=== PATIENT | male | born 1970 | race Caucasian/White ===

== ENCOUNTER 2018-08-22 20:54 | Emergency (ER) | payer MEDICARE, MEDICAID ==
[~2018-08-22] VITALS: Ht 157.5 cm; Wt 55.0 kg
[~2018-08-22 20:54] MED LIST: [UNRECOGNIZED DRUG - CODE] NEB
[2018-08-22] MEDS ORDERED: LORazepam 2 mg/ml vial IM ONE (22:10)
[2018-08-22 22:24] LABS: INR 1.2 INR
[2018-08-22 22:26] LABS: BASOPHILS % (AUTO) 0.6 % (0-1); EOSINOPHILS # (AUTO) 0.2 X10'3 (0-0.9); EOSINOPHILS % (AUTO) 2.2 % (0-6); HEMATOCRIT 43.2 % (42.0-52.0); HEMOGLOBIN 14.1 g/dl (14.0-17.9); LYMPHOCYTES # (AUTO) 3.5 X10'3 (1.1-4.8); LYMPHOCYTES % (AUTO) 42.7 % (21-51); MEAN CORPUSCULAR HEMOGLOBIN 29.8 PG (27.0-31.0); MEAN CORPUSCULAR HGB CONC 32.5 % (33.0-36.5); MEAN CORPUSCULAR VOLUME 91.7 FL (78-98); MEAN PLATELET VOLUME 9.2 FL (7.4-10.4); MONOCYTES # (AUTO) 0.8 X10'3 (0-0.9); MONOCYTES % (AUTO) 10.4 % (2-12); NEUTROPHILS # (AUTO) 3.6 X10'3 (1.8-7.7); NEUTROPHILS % (AUTO) 44.1 % (42-75); PLATELET COUNT 256 X10'3 (140-440); RED BLOOD COUNT 4.71 X10'6 (4.70-6.10); RED CELL DISTRIBUTION WIDTH 13.2 % (11.5-14.5); WHITE BLOOD COUNT 8.1 X10'3 (4.5-11.0)
[2018-08-22 22:31] LABS: ALANINE AMINOTRANSFERASE 36 U/L (12-78); ALBUMIN 4.2 G/DL (3.4-5.0); ALBUMIN/GLOBULIN RATIO 1.2 (1.1-1.5); ALKALINE PHOSPHATASE 60 IU/L (46-116); ANION GAP 8 (8-16); ASPARTATE AMINO TRANSFERASE 52 U/L (10-37); BILIRUBIN,TOTAL 0.3 MG/DL (0.1-1.0); BLOOD UREA NITROGEN 30 MG/DL (7-18); BUN/CREATININE RATIO 26.3 (5.4-32.0); CALCIUM 9.1 MG/DL (8.5-10.1); CHLORIDE 107 MMOL/L (99-107); CREATININE 1.14 MG/DL (0.60-1.10); LIPASE 103 U/L (73-393); POTASSIUM 4.2 MMOL/L (3.5-5.1); SODIUM 146 MMOL/L (135-145); TOTAL CARBON DIOXIDE 31.1 MMOL/L (24-32); TOTAL PROTEIN 7.6 G/DL (6.4-8.2); eGFR 68 ML/MIN
[2018-08-22 22:32] LABS: GLUCOSE 117 MG/DL (70-104)
--- NOTE | 2018-08-22 22:32 | NUR ---
ATIVAN ADM THE PATIENT IS VERY ANXIOUS, EXCITED AND GETTING OUT OF BED, SITTING ON FLOOR, STANDING ON HIS BED AND CAREGIVER REQUESTED MEDICAITON, AND IT IS APPROPRIATE.
--- NOTE | 2018-08-22 22:33 | NUR ---
pt given ativan im 2 mg to right thigh. required caregive to hold him down . pt is very estless and will be difficult to straight cath at this time. Md updated.
--- NOTE | 2018-08-22 23:48 | NUR ---
HE DID FAIRLY WELL WITH A CATHETER FOR UA. THEN CAME INTO ROOM AND THE CAREGIVER AND I WERE ABLE TO STAND THE PATIENT, THE SMALL HERNIA IS SOFT, WHEN HE LAYS DOWN IT GOES AWAY. FRESH ATTENDS PLACED ON PATIENT.
[2018-08-22 23:57] LABS: CLARITY,URINE CLEAR (Clear); COLOR,URINE YELLOW (Yellow); GLUCOSE, URINE NEGATIVE (Neg); KETONES,URINE TRACE mg/dl (Neg); LEUKOCYTE ESTERASE ,URINE NEGATIVE (Neg); NITRITES, URINE NEGATIVE (Neg); OCCULT BLOOD,URINE NEGATIVE (Neg); PH,URINE 8.5 (4.8-8.0); PROTEIN,URINE NEGATIVE (Neg); UROBILINOGEN,URINE 0.2 E.U/dL (0.2-1.0)
[2018-08-23 00:06] LABS: UA COLLECTION TYPE OTHER
== END 2018-08-23 00:08 | disposition home or self-care (01) ==
LOC: ER 20:55
DX: K40.90 Unilateral inguinal hernia, without obstruction or gangrene, not specified as recurrent (principal); Z79.899 Other long term (current) drug therapy
CPT/HCPCS: 36415; 80053; 81003; 83690; 85025; 85610; 96372; 99283; J2060; P9612; 83605

== ENCOUNTER 2019-05-12 09:46 | Day surgery (SDC) | payer MEDICARE, MEDICAID ==
[2019-05-12 09:53] VITALS: BP 83/44
[2019-05-12] MEDS ORDERED: Nebulizer INH (10:42)
[2019-05-12] MEDS ORDERED: DOCU100C41 PO (10:43)
[2019-05-12] MEDS ORDERED: CHOL100046 PO (10:43)
== END 2019-05-12 10:50 | disposition home or self-care (01) ==
LOC: GI LAB 09:46
PROVIDERS: ATTEND Internal Medicine Gastroenterology
DX: K59.00 Constipation, unspecified (principal); Z53.9 Procedure and treatment not carried out, unspecified reason
CPT/HCPCS: J7040

== ENCOUNTER 2019-05-19 20:35 | Emergency (ER) | payer MEDICARE, MEDICAID ==
[~2019-05-19] VITALS: Ht 152.4 cm; Wt 45.5 kg
[~2019-05-19 20:35] MED LIST changes: +CHOL100046 PO; +DOCU100C41 PO; +Nebulizer INH; -[UNRECOGNIZED DRUG - CODE] NEB
[2019-05-19 20:51] VITALS: BP 115/85
== END 2019-05-19 21:47 | disposition home or self-care (01) ==
LOC: ER 20:36
DX: S60.811A Abrasion of right wrist, initial encounter (principal); S50.312A Abrasion of left elbow, initial encounter; J45.909 Unspecified asthma, uncomplicated; R62.50 Unspecified lack of expected normal physiological development in childhood; Z79.899 Other long term (current) drug therapy; W01.0XXA Fall on same level from slipping, tripping and stumbling without subsequent striking against object, initial encounter; Y93.89 Activity, other specified; Y92.89 Other specified places as the place of occurrence of the external cause; Y99.8 Other external cause status
CPT/HCPCS: 99284

== ENCOUNTER 2022-12-24 17:51 | Emergency (ER) | payer MEDICARE, MEDICAID ==
[~2022-12-24] VITALS: Ht 147.3 cm; Wt 41.8 kg
[2022-12-24 18:41] LABS: BASOPHILS # (AUTO) 0.1 X10'3 (0-0.2); BASOPHILS % (AUTO) 0.7 % (0-1); EOSINOPHILS # (AUTO) 0.3 X10'3 (0-0.9); EOSINOPHILS % (AUTO) 3.5 % (0-6); HEMATOCRIT 48.2 % (42.0-52.0); HEMOGLOBIN 15.9 g/dl (14.0-17.9); LYMPHOCYTES # (AUTO) 2.7 X10'3 (1.1-4.8); LYMPHOCYTES % (AUTO) 35.5 % (21-51); MEAN CORPUSCULAR HEMOGLOBIN 30.1 PG (27.0-31.0); MEAN CORPUSCULAR HGB CONC 32.9 g/dL (33.0-36.5); MEAN CORPUSCULAR VOLUME 91.6 FL (78-98); MEAN PLATELET VOLUME 8.1 FL (7.4-10.4); MONOCYTES # (AUTO) 0.5 X10'3 (0-0.9); MONOCYTES % (AUTO) 6.1 % (2-12); NEUTROPHILS # (AUTO) 4.2 X10'3 (1.8-7.7); NEUTROPHILS % (AUTO) 54.2 % (42-75); PLATELET COUNT 214 X10'3 (140-440); RED BLOOD COUNT 5.27 X10'6 (4.70-6.10); RED CELL DISTRIBUTION WIDTH 13.9 % (11.5-14.5); WHITE BLOOD COUNT 7.7 X10'3 (4.5-11.0)
[2022-12-24 18:52] LABS: ALANINE AMINOTRANSFERASE 34 U/L (12-78); ALBUMIN 4.5 G/DL (3.4-5.0); ALBUMIN/GLOBULIN RATIO 1.2 (1.1-1.5); ALKALINE PHOSPHATASE 45 IU/L (46-116); ANION GAP 7 (8-16); ASPARTATE AMINO TRANSFERASE 27 U/L (10-37); BILIRUBIN,TOTAL 0.3 MG/DL (0.1-1.0); BLOOD UREA NITROGEN 18 MG/DL (7-18); BUN/CREATININE RATIO 22.5 (10.0-20.0); CALCIUM 9.7 MG/DL (8.5-10.1); CHLORIDE 99 MMOL/L (99-107); GLUCOSE 110 MG/DL (70-104); POTASSIUM 4.2 MMOL/L (3.5-5.1); SODIUM 139 MMOL/L (135-145); TOTAL CARBON DIOXIDE 32.8 MMOL/L (24-32); TOTAL PROTEIN 8.4 G/DL (6.4-8.2); eGFR > 90 ML/MIN
[2022-12-24 20:14] LABS: CARBAMAZEPINE (TEGRETOL) 9.1 UG/ML (4.0-12.0)
[2022-12-24] MEDS ORDERED: normal saline 1000ML IV soln IVB ONE (22:35)
--- NOTE | 2022-12-24 23:41 | NUR ---
PT PO INTAKE 500CC WATER AND 100ML JUICE
[2022-12-24 23:42] VITALS: BP 110/78
== END 2022-12-24 23:51 | disposition home or self-care (01) ==
LOC: ER 17:51
DX: E03.9 Hypothyroidism, unspecified (principal); J45.909 Unspecified asthma, uncomplicated; Z79.899 Other long term (current) drug therapy; Z79.1 Long term (current) use of non-steroidal anti-inflammatories (NSAID)
CPT/HCPCS: 36415; 70450; 71045; 80053; 80156; 82140; 83605; 84145; 84439; 84443; 84484; 85025; 99284; J7030; A4615

== ENCOUNTER 2024-06-25 13:22 | Emergency (ER) | payer MEDICARE, MEDICAID ==
[~2024-06-25] VITALS: Ht 157.5 cm; Wt 50.0 kg
[2024-06-25 15:54] LABS: BASOPHILS % (AUTO) 0.3 % (0-1); EOSINOPHILS # (AUTO) 0.1 X10'3 (0-0.9); EOSINOPHILS % (AUTO) 1.5 % (0-6); HEMOGLOBIN 13.4 g/dl (14.0-17.9); LYMPHOCYTES % (AUTO) 20.8 % (21-51); MEAN CORPUSCULAR HEMOGLOBIN 30.4 PG (27.0-31.0); MEAN CORPUSCULAR HGB CONC 32.6 g/dL (33.0-36.5); MEAN CORPUSCULAR VOLUME 93.4 FL (78-98); MEAN PLATELET VOLUME 8.1 FL (7.4-10.4); MONOCYTES # (AUTO) 0.9 X10'3 (0-0.9); MONOCYTES % (AUTO) 8.8 % (2-12); NEUTROPHILS # (AUTO) 6.8 X10'3 (1.8-7.7); NEUTROPHILS % (AUTO) 68.6 % (42-75); PLATELET COUNT 240 X10'3 (140-440); RED BLOOD COUNT 4.39 X10'6 (4.70-6.10); RED CELL DISTRIBUTION WIDTH 14.4 % (11.5-14.5); WHITE BLOOD COUNT 9.8 X10'3 (4.5-11.0)
[2024-06-25 16:05] LABS: ALBUMIN 3.7 G/DL (3.4-5.0); ANION GAP 6 (8-16); BLOOD UREA NITROGEN 16 MG/DL (7-18); CALCIUM 8.8 MG/DL (8.5-10.1); CHLORIDE 102 MMOL/L (99-107); GLUCOSE 91 MG/DL (70-104); MAGNESIUM 2.5 MG/DL (1.5-2.4); POTASSIUM 4.7 MMOL/L (3.5-5.1); SODIUM 141 MMOL/L (135-145); eCRCL 73 ML/MIN; eGFR > 90 ML/MIN
[2024-06-25] MEDS ORDERED: DOXY-460 PO (17:30)
[2024-06-25] MEDS: dexamethasone sod phosphate 10mg/ml inj PO STA (17:40)
[2024-06-25 17:43] VITALS: BP 118/75; PULSE 74; RESP 16; TEMP 97.6; O2SAT 98
== END 2024-06-25 17:45 | disposition home or self-care (01) ==
LOC: ER 13:23
DX: J40 Bronchitis, not specified as acute or chronic (principal); Z20.822 Contact with and (suspected) exposure to COVID-19; F88 Other disorders of psychological development; Z88.8 Allergy status to other drugs, medicaments and biological substances; Z79.899 Other long term (current) drug therapy
CPT/HCPCS: 36415; 71045; 80048; 83735; 84145; 85025; 87811; 99284; A6590; J1100

== ENCOUNTER 2024-11-09 14:34 | Emergency (ER) | payer MEDICARE, MEDICAID ==
[~2024-11-09] VITALS: Ht 157.5 cm; Wt 46.0 kg
[~2024-11-09 14:34] MED LIST changes: +DOXY-460 PO
[2024-11-09 14:44] VITALS: RESP 18
[2024-11-09] MEDS ORDERED: AMOX-117 PO (16:30)
[2024-11-09 16:38] VITALS: TEMP 97.9
[2024-11-09] MEDS ORDERED: DOXY-460 PO (18:50)
== END 2024-11-09 16:39 | disposition home or self-care (01) ==
LOC: ER 14:34
DX: S20.471A Other superficial bite of right back wall of thorax, initial encounter (principal); S30.870A Other superficial bite of lower back and pelvis, initial encounter; J45.909 Unspecified asthma, uncomplicated; W50.3XXA Accidental bite by another person, initial encounter; Y93.89 Activity, other specified; Y92.89 Other specified places as the place of occurrence of the external cause; Y99.8 Other external cause status
CPT/HCPCS: 99283